=== PATIENT | male | born 1985 | race Hispanic/Latino ===

== ENCOUNTER 2017-04-20 13:39 | Emergency (ER) | payer SELFPAY ==
[2017-04-20 14:15] LABS: BASOPHILS % (AUTO) 0.7 % (0.0-5.0); EOSINOPHILS % (AUTO) 1.7 % (0.0-8.0); HEMATOCRIT 45.2 % (42-54); LYMPHOCYTES % (AUTO) 31.1 % (21.0-51.0); MEAN CORPUSCULAR HEMOGLOBIN 29.9 pg (27.0-33.0); MEAN CORPUSCULAR HGB CONC 34.3 g/dL (32.0-36.0); MEAN CORPUSCULAR VOLUME 87.2 fL (79-99); MONOCYTES % (AUTO) 5.3 % (3.0-13.0); NEUTROPHILS % (AUTO) 61.2 % (40.0-77.0); PLATELET COUNT (AUTO) 225 K/uL (130-400); RED BLOOD CELL COUNT(AUTO) 5.19 MIL/uL (4.50-6.20); RED CELL DISTRIBUTION WIDTH 12.8 % (11.0-15.5); WHITE BLOOD COUNT (AUTO) 6.9 K/uL (4.8-10.8)
[2017-04-20] MEDS ORDERED: SODIUM CHLORIDE 0.9% 1000ML 1,000 ML IV ONE (14:21)
[2017-04-20 14:39] LABS: INR 0.98 (0.85-1.15); PROTHROMBIN TIME 10.3 SEC (9.6-11.6)
[2017-04-20 14:40] LABS: CREATININE 1.1 mg/dL (0.5-1.5); POTASSIUM 3.4 mmol/L (3.5-5.1)
[2017-04-20 14:57] LABS: ALBUMIN 4.4 g/dL (3.5-5.0); BILIRUBIN,TOTAL 0.3 mg/dL (0.2-1.0); CREATINE KINASE MB 1.5 ng/mL (0.5-3.6)
[2017-04-20] MEDS ORDERED: KETOROLAC TROMETHAMINE 30MG/ML ONE (15:20)
[2017-04-20] MEDS ORDERED: ORPHENADRINE CITRATE 30 MG/ML ML ONE (15:20)
[2017-04-20] MEDS ORDERED: BENZONATATE 100 MG CAPSULE PO ONE (15:54)
== END 2017-04-20 18:23 | disposition home or self-care (01) ==
LOC: EDH 13:39
DX: R09.1 Pleurisy (principal); R51 Headache; M79.1 Myalgia; Z72.0 Tobacco use
CPT/HCPCS: 36415; 71046; 80053; 82550; 82553; 84484 ×2; 85025; 85610; 85730; 87804 ×2; 93005 ×2; 96361; 96374; 96375; 99285; J1885; J2360; J7030